=== PATIENT | male | born 1950 | race Caucasian/White ===

== ENCOUNTER 2017-01-18 13:16 | Emergency (ER) | payer OTHER ==
[~2017-01-18] VITALS: Ht 182.9 cm; Wt 75.8 kg
[2017-01-18 13:38] VITALS: BP 161/79; PULSE 103; RESP 16; TEMP 98.2; O2SAT 95
--- NOTE | 2017-01-18 14:14 | PD ---
HPI Chief Complaint: GI Complaint Time Seen by Provider: 13:58 Travel History International Travel<30 days: No Contact w/Intl Traveler<30days: No Traveled to known affect area: No History of Present Illness HPI This patient complains of rectal bleeding. Duration 2 days. Severity is mild. He describes a red liquid bleeding. No melena. He has no prior history of GI bleed. Never had a colonoscopy. 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 No alleviating factors. PFSH Past Medical History Autoimmune Disease: No Cancer: Yes Chemotherapy: No Hypertension: Yes Psychiatric: No Reproductive: Yes (PENILE PUMP IMPLANT) Radiation Therapy: No Past Surgical History AICD: No Body Medical Devices: PENILE IMPLANT Genitourinary Surgery: Yes Pacemaker: No Other Surgery: Yes (PROSTATE CA HX/REMOVAL AND KIDNEY TUBE REPAIR) Social History Alcohol Use: No Tobacco Use: No Substance Use: No Allergies-Medications (Allergen,Severity, Reaction): Coded Allergies: Codeine (Verified Allergy, Severe, rash, 01/18/17) Reported Meds & Prescriptions Reported Meds & Active Scripts Active Active Prescriptions or Reported Medications Unobtainable Review of Systems General / Constitutional: No: Fever Eyes: No: Visual changes HENT: No: Headaches Cardiovascular: No: Chest Pain or Discomfort Respiratory: No: Shortness of Breath Gastrointestinal: Positive: Hematochezia, No: Abdominal Pain Genitourinary: No: Dysuria Musculoskeletal: No: Pain Skin: No Rash Neurologic: No: Weakness Psychiatric: No: Depression Endocrine: No: Polydipsia Hematologic/Lymphatic: No: Easy Bruising Physical Exam Narrative GENERAL: Well-nourished, well-developed patient in no apparent distress. He is very hard of hearing SKIN: Focused skin assessment reveals no rash and nodules. Skin is Warm and dry. HEAD: Atraumatic. Normocephalic. EYES: Pupils equal and round. No scleral icterus. No injection or drainage. ENT: No nasal bleeding or discharge. Mucous membranes pink and moist. NECK: Trachea midline. No JVD. CARDIOVASCULAR: Regular rate and rhythm. No murmur appreciated. RESPIRATORY: No accessory muscle use. Clear to auscultation. Breath sounds equal bilaterally. GASTROINTESTINAL: Abdomen soft, non-tender, nondistended. Hepatic and splenic margins not palpable. MUSCULOSKELETAL: No obvious deformities. No clubbing. No cyanosis. No edema. NEUROLOGICAL: Awake and alert. No obvious cranial nerve deficits. Motor grossly within normal limits. Normal speech. PSYCHIATRIC: Appropriate mood and affect; insight and judgment normal. Rectal: No fissure or external hemorrhoid Data Data Last Documented VS Vital Signs Date Time Temp Pulse Resp B/P Pulse Ox O2 Delivery O2 Flow Rate FiO2 01/18/17 13:38 98.2 103 16 161/79 95 Orders Iv Access Insert/Monitor (01/18/17 14:11) Complete Blood Count With Diff (01/18/17 14:11) Prothrombin Time / Inr (Pt) (01/18/17 14:11) Act Partial Throm Time (Ptt) (01/18/17 14:11) Alcohol (Ethanol) (01/18/17 14:11) Labs Laboratory Tests Test 01/18/17 14:32 White Blood Count 11.8 TH/MM3 Red Blood Count 4.76 MIL/MM3 Hemoglobin 15.2 GM/DL Hematocrit 45.4 % Mean Corpuscular Volume 95.3 FL Mean Corpuscular Hemoglobin 31.9 PG Mean Corpuscular Hemoglobin 33.4 % Concent Red Cell Distribution Width 13.0 % Platelet Count 200 TH/MM3 Mean Platelet Volume 8.4 FL Neutrophils (%) (Auto) 78.4 % Lymphocytes (%) (Auto) 10.7 % Monocytes (%) (Auto) 6.7 % Eosinophils (%) (Auto) 1.3 % Basophils (%) (Auto) 2.9 % Neutrophils # (Auto) 9.2 TH/MM3 Lymphocytes # (Auto) 1.3 TH/MM3 Monocytes # (Auto) 0.8 TH/MM3 Eosinophils # (Auto) 0.2 TH/MM3 Basophils # (Auto) 0.3 TH/MM3 CBC Comment DIFF FINAL Differential Comment Prothrombin Time 11.0 SEC Prothromb Time International 1.0 RATIO Ratio Activated Partial 34.1 SEC Thromboplast Time Ethyl Alcohol Level 0 MG/DL MDM Medical Decision Making Medical Screen Exam Complete: Yes Emergency Medical Condition: Yes Medical Record Reviewed: Yes Differential Diagnosis Internal hemorrhoid, AV malformation, diverticulosis Narrative Course I have reviewed the patient's electronic medical record. Has been seen here before with no prior blood work on file IV placed CBC is normal with hemoglobin of 15.2 Coagulation studies are normal Alcohol level is negative Patient is having rectal bleeding but stable. He is not hypotensive and has a healthy hemoglobin of 15.2 He is minimally symptomatic Recommend he follow-up with GI physician to discuss colonoscopy If he clinically worsens he will return Advised to avoid alcohol and aspirin and anti-inflammatories Diagnosis Primary Impression: Rectal bleeding Additional Instructions: Follow-up with GI physician Avoid aspirin and anti-inflammatories and alcohol Return for significant worsening Med/Other Pt SpecificInfo: Other Scripts Unable to Obtain Active Prescriptions or Reported Meds Disposition: 01 DISCHARGE HOME Condition: Stable Chidi Preciado MD Jan 18, 2017 14:14
[2017-01-18 14:39] LABS: AUTOMATED NEUTROPHIL # 9.2 TH/MM3 (1.8-7.7); BASOPHIL # 0.3 TH/MM3 (0-0.2); BASOPHIL % 2.9 % (0.0-2.0); EOSINOPHIL # 0.2 TH/MM3 (0-0.4); EOSINOPHIL % 1.3 % (0.0-4.0); HEMATOCRIT 45.4 % (39.0-51.0); HEMO FLAGS DIFF FINAL; LYMPH % 10.7 % (9.0-44.0); LYMPHOCYTE # 1.3 TH/MM3 (1.0-4.8); MEAN CELL VOLUME 95.3 FL (80.0-100.0); MEAN CORPUSCULAR HEMOGLOBIN 31.9 PG (27.0-34.0); MEAN CORPUSCULAR HGB CONC 33.4 % (32.0-36.0); MONO % 6.7 % (0.0-8.0); NEUT % 78.4 % (16.0-70.0); PLATELET COUNT 200 TH/MM3 (150-450); RED BLOOD COUNT 4.76 MIL/MM3 (4.50-5.90); WHITE BLOOD COUNT 11.8 TH/MM3 (4.0-11.0)
[2017-01-18 14:52] LABS: APTT (PATIENT) 34.1 SEC (24.3-30.1)
[2017-01-18 16:03] VITALS: BP 120/78
== END 2017-01-18 16:04 | disposition home or self-care (01) ==
LOC: PHED 13:16
DX: K62.5 Hemorrhage of anus and rectum (principal); I10 Essential (primary) hypertension; Z85.9 Personal history of malignant neoplasm, unspecified
CPT/HCPCS: 80307; 85025; 85610; 85730; 99283

== ENCOUNTER 2017-02-06 09:37 | Emergency (ER) | payer OTHER ==
[~2017-02-06] VITALS: Ht 180.3 cm; Wt 73.0 kg
[2017-02-06 09:43] VITALS: BP 153/70; PULSE 89; RESP 18; TEMP 97.4; O2SAT 99
[2017-02-06] MEDS ORDERED: SODIUM CHLORIDE 0.9% FLUSH 10 ML FLUSH IVF PRN (10:00)
[2017-02-06] MEDS ORDERED: BLOOD PRESSURE MEDS (10:23)
[2017-02-06 10:24] LABS: AUTOMATED NEUTROPHIL # 14.8 TH/MM3 (1.8-7.7); BASOPHIL # 0.2 TH/MM3 (0-0.2); BASOPHIL % 1.3 % (0.0-2.0); EOSINOPHIL # 0.3 TH/MM3 (0-0.4); EOSINOPHIL % 1.5 % (0.0-4.0); HEMATOCRIT 48.3 % (39.0-51.0); HEMO FLAGS DIFF FINAL; LYMPH % 8.1 % (9.0-44.0); LYMPHOCYTE # 1.5 TH/MM3 (1.0-4.8); MEAN CELL VOLUME 95.9 FL (80.0-100.0); MEAN CORPUSCULAR HEMOGLOBIN 31.7 PG (27.0-34.0); MONO % 6.8 % (0.0-8.0); NEUT % 82.3 % (16.0-70.0); PLATELET COUNT 164 TH/MM3 (150-450); RED BLOOD COUNT 5.03 MIL/MM3 (4.50-5.90); RED CELL DISTRIBUTION WIDTH 14.4 % (11.6-17.2)
[2017-02-06 10:30] VITALS: BP 114/78; PULSE 81; RESP 16; O2SAT 98
[2017-02-06 10:31] LABS: POTASSIUM 3.6 MEQ/L (3.5-5.1)
[2017-02-06 10:34] LABS: BICARBONATE 22.2 MEQ/L (21.0-32.0)
--- NOTE | 2017-02-06 10:57 | PD ---
HPI Chief Complaint: GI Complaint Time Seen by Provider: 09:54 Travel History International Travel<30 days: No Contact w/Intl Traveler<30days: No Traveled to known affect area: No History of Present Illness HPI 66 yo M c/o diarrhea x 3 days. + Bloody with liquid stool. Mild generalized abdominal pain reported. No fever. Onset gradual. Pt reports hx of daily alcohol consumption. No prior colonoscopy. No prior hx GI bleed. PFSH Past Medical History Autoimmune Disease: No Cancer: Yes Cardiovascular Problems: Yes Chemotherapy: No Diminished Hearing: Yes ([place]) Gastrointestinal Disorders: No Hypertension: Yes Musculoskeletal: No Psychiatric: No Reproductive: Yes (PENILE PUMP IMPLANT) Respiratory: No Radiation Therapy: No Influenza Vaccination: No Past Surgical History Abdominal Surgery: No AICD: No Appendectomy: Yes Body Medical Devices: PENILE IMPLANT Genitourinary Surgery: Yes Pacemaker: No Prostatectomy: Yes Thoracic Surgery: No Other Surgery: Yes (PROSTATE CA HX/REMOVAL AND KIDNEY TUBE REPAIR) Social History Alcohol Use: Yes (2 DRINKS PER DAY) Tobacco Use: No Substance Use: No Allergies-Medications (Allergen,Severity, Reaction): Coded Allergies: codeine (Unverified Allergy, Severe, rash, 02/06/17) Reported Meds & Prescriptions Reported Meds & Active Scripts Active Flagyl (Metronidazole) 500 Mg Tab 500 Mg PO TID Cipro (Ciprofloxacin HCl) 500 Mg Tab 500 Mg PO BID Reported [Blood Pressure Meds] Unknown Dose Review of Systems Except as stated in HPI: all other systems reviewed are Neg General / Constitutional: No: Fever Gastrointestinal: Positive: Diarrhea, Other (bloody stool) Physical Exam Narrative GENERAL: 66 yo M, WNWD, NAD SKIN: Warm and dry. HEAD: Atraumatic. Normocephalic. EYES: Pupils equal and round. No scleral icterus. No injection or drainage. ENT: No nasal bleeding or discharge. Mucous membranes pink and moist. NECK: Trachea midline. No JVD. CARDIOVASCULAR: Regular rate and rhythm. RESPIRATORY: No accessory muscle use. Clear to auscultation. Breath sounds equal bilaterally. GASTROINTESTINAL:Soft. No focus of tenderness. MUSCULOSKELETAL: Extremities without clubbing, cyanosis, or edema. No obvious deformities. NEUROLOGICAL: Awake and alert. No obvious cranial nerve deficits. Motor grossly within normal limits. Five out of 5 muscle strength in the arms and legs. Normal speech. PSYCHIATRIC: Appropriate mood and affect; insight and judgment normal. Data Data Last Documented VS 97.4 80 16 138/82 Orders Orders Basic Metabolic Panel (Bmp) (02/06/17 10:00) Complete Blood Count With Diff (02/06/17 10:00) Ecg Monitoring (02/06/17 10:00) Iv Access Insert/Monitor (02/06/17 10:00) Oximetry (02/06/17 10:00) Sodium Chloride 0.9% Flush (Ns Flush) (02/06/17 10:00) Mandatory Outpatient Referral (02/06/17 10:57) Ciprofloxacin (Cipro) (02/06/17 11:15) Metronidazole (Flagyl) (02/06/17 11:15) Labs Laboratory Tests Test 02/06/17 10:18 White Blood Count 18.0 TH/MM3 Red Blood Count 5.03 MIL/MM3 Hemoglobin 16.0 GM/DL Hematocrit 48.3 % Mean Corpuscular Volume 95.9 FL Mean Corpuscular Hemoglobin 31.7 PG Mean Corpuscular Hemoglobin Concent 33.0 % Red Cell Distribution Width 14.4 % Platelet Count 164 TH/MM3 Mean Platelet Volume 9.1 FL Neutrophils (%) (Auto) 82.3 % Lymphocytes (%) (Auto) 8.1 % Monocytes (%) (Auto) 6.8 % Eosinophils (%) (Auto) 1.5 % Basophils (%) (Auto) 1.3 % Neutrophils # (Auto) 14.8 TH/MM3 Lymphocytes # (Auto) 1.5 TH/MM3 Monocytes # (Auto) 1.2 TH/MM3 Eosinophils # (Auto) 0.3 TH/MM3 Basophils # (Auto) 0.2 TH/MM3 CBC Comment DIFF FINAL Differential Comment Blood Urea Nitrogen 17 MG/DL Creatinine 0.80 MG/DL Random Glucose 95 MG/DL Calcium Level 8.6 MG/DL Sodium Level 141 MEQ/L Potassium Level 3.6 MEQ/L Chloride Level 108 MEQ/L Carbon Dioxide Level 22.2 MEQ/L Anion Gap 11 MEQ/L Estimat Glomerular Filtration Rate 96 ML/MIN MDM Medical Decision Making Medical Screen Exam Complete: Yes Emergency Medical Condition: Yes Differential Diagnosis Constipation, Gastritis, Acute Cholecystitis, Biliary Colic, Pancreatitis, SOMMER , Hepatitis, Bowel Obstruction, Cystitis, Mesenteric Ischemia, AAA, Appendicitis , Renal Stone/Hydronephrosis, GERD, perforated viscous Narrative Course CBC & BMP Diagram 02/06/17 10:18 Calcium Level 8.6 The patient is resting comfortably and feels better, is alert and in no distress. The patients results and examination findings were discussed. The repeat examination is unremarkable and benign. The history, exam, diagnostic testing, and current condition do not suggest any significant pathology to warrant further testing, continued ED treatment, admission, or surgical evaluation at this point. The vital signs have been stable. The patient does not have uncontrollable pain, intractable vomiting, or other significant symptoms. The patient's condition is stable and appropriate for discharge. The patient will pursue further outpatient evaluation with a primary care physician or other designated or consulting physician as indicated in the discharge instructions. The patient expressed understanding and was agreeable with this plan. Diagnosis Primary Impression: Rectal bleeding Additional Impression: Colitis Referrals: Sloan Campbell MD 2 days Additional Instructions: You have a choice when it comes to health care, and we are glad that you chose [facility]. Hopefully, we have met your expectations on today's visit. You are welcome to return to [facility] at any time, as we are committed to meeting the health care needs of our community. Med/Other Pt SpecificInfo: Prescription(s) given Scripts Metronidazole (Flagyl) 500 Mg Tab 500 MG PO TID for Infection, #10 TAB 0 Refills Prov: Everardo Mcclendon MD 02/06/17 Ciprofloxacin (Cipro) 500 Mg Tab 500 MG PO BID for Infection, #10 TAB 0 Refills Prov: Everardo Mcclendon MD 02/06/17 Disposition: 01 DISCHARGE HOME Condition: Stable Everardo Mcclendon MD Feb 06, 2017 10:57
[2017-02-06] MEDS ORDERED: CIPR-9 PO (11:03)
[2017-02-06] MEDS ORDERED: METR-1 PO (11:03)
[2017-02-06 11:08] VITALS: BP 139/82; PULSE 80; RESP 16; O2SAT 98
[2017-02-06 11:09] VITALS: RESP 16; O2SAT 98
[2017-02-06] MEDS ORDERED: metroNIDAZOLE 500 MG TAB PO ONE (11:15)
[2017-02-06] MEDS ORDERED: CIPROFLOXACIN 500 MG TAB PO ONE (11:15)
== END 2017-02-06 11:15 | disposition home or self-care (01) ==
LOC: PHED 09:37
DX: K62.5 Hemorrhage of anus and rectum (principal); K52.9 Noninfective gastroenteritis and colitis, unspecified; I10 Essential (primary) hypertension; Z96.0 Presence of urogenital implants; Z85.46 Personal history of malignant neoplasm of prostate
CPT/HCPCS: 80048; 85025; 99284

== ENCOUNTER 2017-08-07 13:48 | Emergency (ER) | payer OTHER ==
[~2017-08-07 13:48] MED LIST: BLOOD PRESSURE MEDS; CIPR-9 PO; METR-1 PO
[2017-08-07 14:02] VITALS: BP 106/52; PULSE 48; RESP 16; TEMP 96.4; O2SAT 96
[2017-08-07 14:04] VITALS: BP 99/55; PULSE 44; RESP 16; O2SAT 96
--- NOTE | 2017-08-07 15:05 | RADRPT ---
EXAM DATE/TIME: 08/07/2017 14:21 [facility] COMPARISON: No previous studies available for comparison. INDICATIONS : Chest discomfort; low blood pressure. MEDICAL HISTORY : Hypertension. Carcinoma, prostatic. SURGICAL HISTORY : None. ENCOUNTER: Initial ACUITY: 1 day PAIN SCORE: 1/10 LOCATION: Bilateral chest FINDINGS: PA and lateral views of the chest demonstrate the lungs to be symmetrically aerated without evidence of mass, infiltrate or effusion. 7 mm calcified granuloma anterior right midlung. The cardiomediast inal contours are unremarkable. Osseous structures are intact. CONCLUSION: 1. Right lung calcified granuloma. 2. The lungs are otherwise clear. Hernesto Marino MD on August 07, 2017 at 15:03 Board Certified Radiologist. This report was verified electronically.
[2017-08-07 15:37] LABS: AUTOMATED NEUTROPHIL # 6.7 TH/MM3 (1.8-7.7); BASOPHIL # 0.1 TH/MM3 (0-0.2); BASOPHIL % 1.3 % (0.0-2.0); EOSINOPHIL # 0.1 TH/MM3 (0-0.4); EOSINOPHIL % 1.5 % (0.0-4.0); HEMATOCRIT 43.1 % (39.0-51.0); HEMOGLOBIN 14.6 GM/DL (13.0-17.0); LYMPH % 20.5 % (9.0-44.0); MEAN CORPUSCULAR HEMOGLOBIN 31.4 PG (27.0-34.0); MEAN CORPUSCULAR HGB CONC 33.8 % (32.0-36.0); MEAN PLATELET VOLUME 8.2 FL (7.0-11.0); MONO % 8.1 % (0.0-8.0); MONOCYTE # 0.8 TH/MM3 (0-0.9); NEUT % 68.6 % (16.0-70.0); PLATELET COUNT 236 TH/MM3 (150-450); RED BLOOD COUNT 4.63 MIL/MM3 (4.50-5.90); RED CELL DISTRIBUTION WIDTH 13.5 % (11.6-17.2); WHITE BLOOD COUNT 9.7 TH/MM3 (4.0-11.0)
[2017-08-07 15:57] LABS: BICARBONATE 25.4 MEQ/L (21.0-32.0); CALCIUM 8.9 MG/DL (8.5-10.1); CREATININE 1.19 MG/DL (0.60-1.30)
[2017-08-07 16:45] VITALS: BP_SYST 121; BP_SYST 169; BP_DIAS 57; BP_DIAS 58; BP_DIAS 78; RESP 12; RESP 14; RESP 17
[2017-08-07] MEDS ORDERED: SODIUM CHLOR 0.9% 1000 ML INJ 1,000 ML IV ONE (16:45)
[2017-08-07 18:23] VITALS: BP_SYST 113; BP_SYST 121; BP_SYST 158; BP_DIAS 109; BP_DIAS 66; BP_DIAS 69; RESP 16; RESP 18
--- NOTE | 2017-08-07 19:00 | PD ---
HPI Chief Complaint: General Weakness Time Seen by Provider: 16:35 Travel History International Travel<30 days: No Contact w/Intl Traveler<30days: No Traveled to known affect area: No History of Present Illness HPI Patient is a 66-year-old male who comes in because his doctor told him to come in because his blood pressure was low in his office. He says he went for a routine checkup, and has not been having any issues. He says he occasionally feels dizzy, but currently feels fine. He denies any chest pain or shortness of breath. He has not fallen. He was told by his doctor to hold his metoprolol. He says he would really like to go home. Severity is mild. PFSH Past Medical History Autoimmune Disease: No Cancer: Yes (PROSTATE) Cardiovascular Problems: Yes Chemotherapy: No Diminished Hearing: Yes ([place]) Gastrointestinal Disorders: No Hypertension: Yes Musculoskeletal: No Psychiatric: No Reproductive: Yes (PENILE PUMP IMPLANT) Respiratory: No Radiation Therapy: No Past Surgical History Abdominal Surgery: No AICD: No Appendectomy: Yes Body Medical Devices: PENILE IMPLANT Genitourinary Surgery: Yes Pacemaker: No Prostatectomy: Yes Thoracic Surgery: No Other Surgery: Yes (PROSTATE CA HX/REMOVAL AND KIDNEY TUBE REPAIR) Social History Alcohol Use: Yes (2 DRINKS PER DAY) Tobacco Use: No Substance Use: No Allergies-Medications (Allergen,Severity, Reaction): Coded Allergies: codeine (Unverified Allergy, Severe, rash, 02/06/17) Reported Meds & Prescriptions Reported Meds & Active Scripts Active Flagyl (Metronidazole) 500 Mg Tab 500 Mg PO TID Cipro (Ciprofloxacin HCl) 500 Mg Tab 500 Mg PO BID Reported [Blood Pressure Meds] Unknown Dose Review of Systems Except as stated in HPI: all other systems reviewed are Neg General / Constitutional: No: Fever, Chills HENT: No: Headaches, Lightheadedness Cardiovascular: No: Chest Pain or Discomfort Respiratory: No: Shortness of Breath Gastrointestinal: No: Nausea, Vomiting Genitourinary: No: Dysuria Musculoskeletal: No: Myalgias Skin: No Rash Neurologic: Positive: Dizziness, No: Weakness Physical Exam Narrative GENERAL: Awake and alert, no acute distress. SKIN: Focused skin assessment warm/dry. No wounds or signs of infection. HEAD: Atraumatic. Normocephalic. EYES: Pupils equal and round. No scleral icterus. Extraocular movements intact. ENT: Mucous membranes pink and moist. NECK: Trachea midline. No JVD. CARDIOVASCULAR: Regular rate and rhythm. No murmur appreciated. RESPIRATORY: No accessory muscle use. Clear to auscultation. Breath sounds equal bilaterally. GASTROINTESTINAL: Abdomen soft, non-tender, nondistended. MUSCULOSKELETAL: No obvious deformities. No clubbing. No cyanosis. No edema. NEUROLOGICAL: Awake and alert. No obvious cranial nerve deficits. Motor grossly within normal limits. Normal speech. PSYCHIATRIC: Appropriate mood and affect; insight and judgment normal. Data Data Last Documented VS Vital Signs Date Time Temp Pulse Resp B/P (MAP) Pulse Ox O2 Delivery O2 Flow Rate FiO2 08/07/17 18:23 57 16 113/66 (82) 57 18 121/69 (86) 67 18 158/109 (125) Manual Cuff/Auscultation 08/07/17 16:35 Room Air 08/07/17 14:04 96 08/07/17 14:02 96.4 Orders Orders Complete Blood Count With Diff (08/07/17 14:10) Basic Metabolic Panel (Bmp) (08/07/17 14:10) Electrocardiogram (08/07/17 ) Chest, Pa & Lat (08/07/17 ) Orthostatic Vital Signs (08/07/17 16:43) Sodium Chlor 0.9% 1000 Ml Inj (Ns 1000 M (08/07/17 16:45) Troponin I (08/07/17 16:45) Labs Laboratory Tests Test 08/07/17 15:22 08/07/17 16:50 White Blood Count 9.7 TH/MM3 Red Blood Count 4.63 MIL/MM3 Hemoglobin 14.6 GM/DL Hematocrit 43.1 % Mean Corpuscular Volume 93.0 FL Mean Corpuscular Hemoglobin 31.4 PG Mean Corpuscular Hemoglobin Concent 33.8 % Red Cell Distribution Width 13.5 % Platelet Count 236 TH/MM3 Mean Platelet Volume 8.2 FL Neutrophils (%) (Auto) 68.6 % Lymphocytes (%) (Auto) 20.5 % Monocytes (%) (Auto) 8.1 % Eosinophils (%) (Auto) 1.5 % Basophils (%) (Auto) 1.3 % Neutrophils # (Auto) 6.7 TH/MM3 Lymphocytes # (Auto) 2.0 TH/MM3 Monocytes # (Auto) 0.8 TH/MM3 Eosinophils # (Auto) 0.1 TH/MM3 Basophils # (Auto) 0.1 TH/MM3 CBC Comment DIFF FINAL Differential Comment Blood Urea Nitrogen 30 MG/DL Creatinine 1.19 MG/DL Random Glucose 95 MG/DL Calcium Level 8.9 MG/DL Sodium Level 138 MEQ/L Potassium Level 5.4 MEQ/L Chloride Level 108 MEQ/L Carbon Dioxide Level 25.4 MEQ/L Anion Gap 5 MEQ/L Estimat Glomerular Filtration Rate 61 ML/MIN Troponin I LESS THAN 0.02 NG/ML MDM Medical Decision Making Medical Screen Exam Complete: Yes Emergency Medical Condition: Yes Medical Record Reviewed: Yes Interpretation(s) ECG shows sinus bradycardia, no ST elevation or depression. Differential Diagnosis Dehydration versus medication issues versus electrolyte abnormality Narrative Course Patient is a 66-year-old male who comes in because his doctor told him his blood pressure was low. He is asymptomatic. Blood pressure was taken with a proper sized cuff and was found to be normal. He was originally orthostatic, he was given a liter of fluids and this improved. He was already told to hold his metoprolol. Labs show no acute abnormalities. He would like to go home. He will be discharged to follow-up with his doctors. Diagnosis Primary Impression: Orthostatic hypotension Patient Instructions: Dehydration (ED), General Instructions, Hypotension (DC) Additional Instructions: Hold her blood pressure medication as directed. Increase her water intake. Follow-up with your doctor. Return to the ED as needed for any worsening symptoms. Disposition: 01 DISCHARGE HOME Condition: Stable Alexia Sequeira MD Aug 07, 2017 19:00
[2017-08-07 19:09] VITALS: BP 120/60; PULSE 52; RESP 16; O2SAT 98
--- NOTE | 2017-08-08 08:13 | EKG ---
Date Performed: 08/07/2017 Time Performed: 15:18:22 PTAGE: 66 years EKG: SINUS BRADYCARDIA POSSIBLE RIGHT VENTRICULAR CONDUCTION DELAY BORDERLINE ECG PREVIOUS TRACING : 10/13/1999 08.35 Since the prior tracing, there has been no significant garsia DOCTOR: Tri Ren[facility] Interpretating Date/Time 08/08/2017 08:11:01
== END 2017-08-07 19:34 | disposition home or self-care (01) ==
LOC: NEPE 13:48
DX: I95.1 Orthostatic hypotension (principal); R94.31 Abnormal electrocardiogram [ECG] [EKG]; H91.90 Unspecified hearing loss, unspecified ear; Z85.46 Personal history of malignant neoplasm of prostate; Z98.890 Other specified postprocedural states
CPT/HCPCS: 71046; 80048; 84484; 85025; 93005; 96360; 99285; J7030